=== PATIENT | female | born 1985 | race Caucasian/White ===

== ENCOUNTER → 2017-07-26 | Outpatient (REF) | payer BC ==
[2017-07-29 14:14] LABS: HPV HYBRID CAPTURE II Negative (Negative)
== END ==
LOC: M LAB REF 18:08
DX: Z12.4 Encounter for screening for malignant neoplasm of cervix (principal)
CPT/HCPCS: G0123

== ENCOUNTER → 2017-10-14 | Outpatient (CLI) | payer BC ==
[2017-10-14 09:55] LABS: BASO # 0.1 10^3/uL (0.0-0.2); BASO % 0.6 % (0.0-1.0); EOS # 0.1 10^3/uL (0.0-0.50); EOS % 1.5 % (0.0-3.0); HEMATOCRIT 39.5 % (36.0-47.0); HEMOGLOBIN 13.5 g/dl (12.0-15.5); IMMATURE GRANULOCYTE % 0.4 % (0-3.0); LYMPH # 1.6 10^3/uL (1.5-4.5); LYMPH % 18.9 % (24.0-44.0); MEAN CORPUSCULAR HEMOGLOBIN 29.7 pg (27.0-33.0); MEAN CORPUSCULAR HGB CONC 34.2 g/dl (32.0-36.5); MEAN CORPUSCULAR VOLUME 86.8 fl (80.0-96.0); MONO # 0.6 10^3/uL (0.0-0.8); NEUTROPHILS # 5.9 10^3/uL (1.8-7.7); NEUTROPHILS % 71.6 % (36.0-66.0); PLATELET COUNT, AUTOMATED 205 10^3/uL (150-450); RED BLOOD COUNT 4.55 10^6/uL (4.00-5.40); RED CELL DISTRIBUTION WIDTH 13.5 % (11.5-14.5); WHITE BLOOD COUNT 8.2 10^3/uL (4.0-10.0)
[2017-10-14 12:16] LABS: CHLAMYDIA DNA AMPLIFICATION NEGATIVE (NEGATIVE); GC DNA AMPLIFICATION NEGATIVE (NEGATIVE)
[2017-10-15 11:53] LABS: RUBELLA IgG QUALITATIVE IMMUNE (IMMUNE)
[2017-10-15 12:03] LABS: HBsAg Prenatal NEGATIVE (NEGATIVE)
[2017-10-15 12:25] LABS: HIV 1&2 SCREEN CENTAUR NEGATIVE (NEGATIVE)
[2017-10-15 12:25] LABS: HEPATITIS C VIRUS ABY INDEX < 0.0 INDEX (<0.8)
== END ==
LOC: M LAB 09:17
DX: Z34.81 Encounter for supervision of other normal pregnancy, first trimester (principal)

== ENCOUNTER → 2017-11-22 | Outpatient (CLI) | payer BC | LOC: M RAD 16:03 | DX: Z34.82 Encounter for supervision of other normal pregnancy, second trimester (principal); Z36.89 Encounter for other specified antenatal screening; Z3A.18 18 weeks gestation of pregnancy | CPT/HCPCS: 76811 ==

== ENCOUNTER → 2018-02-04 | Outpatient (CLI) | payer BC ==
[2018-02-04 13:51] LABS: BASO % 0.4 % (0.0-1.0); EOS # 0.2 10^3/uL (0.0-0.50); EOS % 1.6 % (0.0-3.0); HEMATOCRIT 36.5 % (36.0-47.0); HEMOGLOBIN 11.7 g/dl (12.0-15.5); IMMATURE GRANULOCYTE % 0.7 % (0-3.0); LYMPH # 1.4 10^3/uL (1.5-4.5); LYMPH % 14.6 % (24.0-44.0); MEAN CORPUSCULAR HEMOGLOBIN 29.8 pg (27.0-33.0); MEAN CORPUSCULAR HGB CONC 32.1 g/dl (32.0-36.5); MEAN CORPUSCULAR VOLUME 93.1 fl (80.0-96.0); MONO # 0.6 10^3/uL (0.0-0.8); MONO % 6.7 % (0.0-5.0); NEUTROPHILS # 7.1 10^3/uL (1.8-7.7); PLATELET COUNT, AUTOMATED 199 10^3/uL (150-450); RED BLOOD COUNT 3.92 10^6/uL (4.00-5.40); RED CELL DISTRIBUTION WIDTH 13.8 % (11.5-14.5); WHITE BLOOD COUNT 9.3 10^3/uL (4.0-10.0)
[2018-02-04 14:17] LABS: GLUCOSE CHALLENGE TEST 1 HOUR 116 MG/DL (LESS THAN 140)
== END ==
LOC: M SMT 08:14
DX: Z34.82 Encounter for supervision of other normal pregnancy, second trimester (principal); Z36.89 Encounter for other specified antenatal screening
CPT/HCPCS: 82950

== ENCOUNTER → 2018-03-29 | Outpatient (REF) | payer BC | LOC: M LAB REF 13:15 | DX: Z36.89 Encounter for other specified antenatal screening (principal) | CPT/HCPCS: 87081 ==

== ENCOUNTER → 2018-03-30 | Outpatient (CLI) | payer BC | LOC: M RAD 14:46 | DX: O26.843 Uterine size-date discrepancy, third trimester (principal); Z3A.36 36 weeks gestation of pregnancy | CPT/HCPCS: 76816 ==

== ENCOUNTER 2018-04-28 07:37 | Inpatient (IN) | payer BC ==
[2018-04-28] MEDS ORDERED: OXYTOCIN 30 UNITS IN 0.9% NaCl 500ML IV BAG (J2590) As Ordered (07:54)
[2018-04-28 08:24] LABS: HEMATOCRIT 36.7 % (36.0-47.0); HEMOGLOBIN 11.9 g/dl (12.0-15.5); MEAN CORPUSCULAR HEMOGLOBIN 27.9 pg (27.0-33.0); MEAN CORPUSCULAR HGB CONC 32.4 g/dl (32.0-36.5); MEAN CORPUSCULAR VOLUME 85.9 fl (80.0-96.0); PLATELET COUNT, AUTOMATED 218 10^3/uL (150-450); RED BLOOD COUNT 4.27 10^6/uL (4.00-5.40); RED CELL DISTRIBUTION WIDTH 14.8 % (11.5-14.5); WHITE BLOOD COUNT 13.7 10^3/uL (4.0-10.0)
[2018-04-28] MEDS: OXYTOCIN DRIP 30 UNITS in APPROPRIATE DILUENT 1 EA IV (08:35)
[2018-04-28 08:58] LABS: CORD GAS HCO3 V 23.3 MEQ/L; CORD GAS O2 SAT V 85.7 %; CORD GAS PCO2 V 46.3 mmHg; CORD GAS PO2 V 41.4 mmHg; CORD GAS SBC V 21.7 MEQ/L; CORD GAS TCO2 V 24.7 MEQ/L
[2018-04-28 08:59] LABS: CORD GAS ABE A -4.7; CORD GAS HCO3 A 24.3 MEQ/L; CORD GAS O2 SAT A 64.6 %; CORD GAS PCO2 A 61.2 mmHg; CORD GAS PH A 7.216 UNITS; CORD GAS PO2 A 30.6 mmHg; CORD GAS SBC A 19.8 MEQ/L; CORD GAS TCO2 A 26.1 MEQ/L
[2018-04-28] MEDS: LIDOCAINE 1% MDV 20ML VIAL INFIL (08:59)
[2018-04-28] MEDS: PRENATAL VITAMINS CHEWABLE TABLET PO (09:00)
[2018-04-28] MEDS ORDERED: MEASLES,MUMPS,RUBELLA VACCINE INJ (MMR-II) (90707) SC (09:15)
[2018-04-28] MEDS ORDERED: DIBUCAINE 1% OINTMENT 30GM TOP (09:15)
[2018-04-28] MEDS ORDERED: DOCUSATE SODIUM 100 MG CAP PO (09:15)
[2018-04-28] MEDS ORDERED: RHOGAM 300 MCG (1500 IU) INJ (J2790) IM (09:15)
[2018-04-28] MEDS ORDERED: METHYLERGONOVINE MALEATE 0.2 MG TAB PO (09:15)
[2018-04-28] MEDS ORDERED: ACETAMINOPHEN 500 MG TAB PO (09:15)
[2018-04-28] MEDS ORDERED: IBUPROFEN 800 MG TAB PO (09:15)
[2018-04-29] MEDS: PRENATAL VITAMINS CHEWABLE TABLET PO (07:57)
== END 2018-04-29 15:25 | disposition home or self-care (01) | DRG 560 ==
LOC: M LDO 07:37 → M LDI 07:52 → M OBS 11:10
PROVIDERS: Advanced Practice Midwife
PROC: 10E0XZZ Delivery of Products of Conception, External Approach (ICD-10-PCS; principal; 2018-04-28)
DX: O48.0 Post-term pregnancy (principal); O66.0 Obstructed labor due to shoulder dystocia; Z37.0 Single live birth; Z3A.40 40 weeks gestation of pregnancy; O69.82X0 Labor and delivery complicated by other cord entanglement, without compression, not applicable or unspecified

== ENCOUNTER → 2018-09-12 | Outpatient (REF) | payer BC ==
[~2018-09-12] MED LIST: IBUP-1022 PO; IBUP80TA PO; MAPA500T2 PO; PRENTAB9 PO
[2018-09-15 14:14] LABS: HPV HYBRID CAPTURE II Negative (Negative)
== END ==
LOC: M LAB REF 18:53
PROVIDERS: ATTEND Advanced Practice Midwife
DX: Z12.4 Encounter for screening for malignant neoplasm of cervix (principal)
CPT/HCPCS: 87624; G0123

== ENCOUNTER → 2018-10-14 | Outpatient (CLI) | payer BC | LOC: M SMT 09:28 | PROVIDERS: ATTEND Obstetrics & Gynecology | DX: N91.2 Amenorrhea, unspecified (principal) ==

== ENCOUNTER → 2018-10-31 | Outpatient (CLI) | payer BC ==
--- NOTE | 2018-10-31 07:28 | REP ---
Clinical: Dating and viability. Technique: Transabdominal first trimester obstetrical ultrasound with color Doppler evaluation. Findings: Single live early intrauterine identified. [place] rump length of 5.4 cm corresponds to 12 weeks 0 days gestational age with estimated date of delivery 05/15/2019. heart rate equals 165 beats per minute. No gross abnormalities are identified. Maternal ovaries are normal in appearance. Right ovary measures 2.7 x 1.4 x 2.5 cm; RI 0.72. Left ovary measures 3.2 x 2.9 x 2.3 cm; RI 0.64. Impression: Single live early intrauterine measuring at 12 weeks 0 days gestational age. Complete anatomical assessment should be performed at 19-20 weeks. Electronically Signed by Anselmo Matias MD 10/31/2018 07:20 A
== END ==
LOC: M RAD 06:30
PROVIDERS: ATTEND Nurse Practitioner Family
DX: Z32.01 Encounter for pregnancy test, result positive (principal); Z3A.12 12 weeks gestation of pregnancy

== ENCOUNTER → 2019-02-20 | Outpatient (CLI) | payer BC ==
[2019-02-20 18:21] LABS: BASO # 0.1 10^3/uL (0.0-0.2); BASO % 0.6 % (0.0-1.0); EOS # 0.1 10^3/uL (0.0-0.5); HEMATOCRIT 36.8 % (36.0-47.0); HEMOGLOBIN 12.1 g/dl (12.0-15.5); LYMPH # 1.7 10^3/uL (1.5-5.0); LYMPH % 16.6 % (24.0-44.0); MEAN CORPUSCULAR HEMOGLOBIN 30.1 pg (27.0-33.0); MEAN CORPUSCULAR HGB CONC 32.9 g/dl (32.0-36.5); MEAN CORPUSCULAR VOLUME 91.5 fl (80.0-96.0); MONO # 0.7 10^3/uL (0.0-0.8); MONO % 7.2 % (0.0-5.0); NEUTROPHILS # 7.6 10^3/uL (1.5-8.5); NEUTROPHILS % 73.4 % (36.0-66.0); PLATELET COUNT, AUTOMATED 180 10^3/uL (150-450); RED BLOOD COUNT 4.02 10^6/uL (4.00-5.40); WHITE BLOOD COUNT 10.3 10^3/uL (4.0-10.0)
[2019-02-20 20:48] LABS: CHLAMYDIA DNA AMPLIFICATION NEGATIVE (NEGATIVE); GC DNA AMPLIFICATION NEGATIVE (NEGATIVE)
[2019-02-22 08:30] LABS: HIV 1&2 SCREEN CENTAUR NEGATIVE (NEGATIVE); RUBELLA IgG QUALITATIVE IMMUNE (IMMUNE)
[2019-02-22 10:01] LABS: HEPATITIS C VIRUS ABY INDEX 0.1 INDEX (<0.8)
== END ==
LOC: M SMT 13:06
PROVIDERS: ATTEND Advanced Practice Midwife
DX: Z34.80 Encounter for supervision of other normal pregnancy, unspecified trimester (principal); Z36.89 Encounter for other specified antenatal screening

== ENCOUNTER → 2019-04-11 | Outpatient (CLI) | payer BC | LOC: M WHC 08:33 | PROVIDERS: ATTEND Advanced Practice Midwife | DX: O26.849 Uterine size-date discrepancy, unspecified trimester (principal); Z53.9 Procedure and treatment not carried out, unspecified reason ==

== ENCOUNTER → 2019-04-18 | Outpatient (REF) | payer BC | LOC: M SFHCWAGY 17:01 | PROVIDERS: ATTEND Advanced Practice Midwife | DX: Z34.93 Encounter for supervision of normal pregnancy, unspecified, third trimester (principal) ==

== ENCOUNTER 2019-05-16 16:19 | Inpatient (IN) | payer BC ==
[2019-05-16] VITALS (8 sets, daily range): BP systolic 106–147; BP diastolic 60–81
[~2019-05-16] VITALS: Ht 154.9 cm; Wt 120.7 kg
[2019-05-16] MEDS ORDERED: OXYTOCIN 30 UNITS IN 0.9% NaCl 500ML IV BAG (J2590) As Ordered ONE (16:40)
[2019-05-16 17:08] LABS: HEMATOCRIT 42.7 % (36.0-47.0); HEMOGLOBIN 13.7 g/dl (12.0-15.5); MEAN CORPUSCULAR HEMOGLOBIN 27.8 pg (27.0-33.0); MEAN CORPUSCULAR HGB CONC 32.1 g/dl (32.0-36.5); MEAN CORPUSCULAR VOLUME 86.6 fl (80.0-96.0); PLATELET COUNT, AUTOMATED 194 10^3/uL (150-450); RED BLOOD COUNT 4.93 10^6/uL (4.00-5.40); WHITE BLOOD COUNT 17.6 10^3/uL (4.0-10.0)
[2019-05-16] MEDS ORDERED: OXYTOCIN DRIP 30 UNITS in IV 1 EA IV SCH (17:24)
[2019-05-16] MEDS ORDERED: ACETAMINOPHEN TAB 650MG DOSE (2X325MG) PO PRN (17:30)
[2019-05-16] MEDS ORDERED: DIBUCAINE 1% OINTMENT 30GM TOP PRN (17:30)
[2019-05-16] MEDS ORDERED: IBUPROFEN 600 MG TAB PO PRN (17:30)
[2019-05-16] MEDS ORDERED: DOCUSATE SODIUM 100 MG CAP PO PRN (17:30)
[2019-05-16] MEDS ORDERED: IBUPROFEN 800 MG TAB PO PRN (17:30)
[2019-05-16] MEDS ORDERED: METHYLERGONOVINE MALEATE 0.2 MG TAB PO PRN (17:30)
[2019-05-16] MEDS ORDERED: MEASLES,MUMPS,RUBELLA VACCINE INJ (MMR-II) (90707) SC SCH (17:30)
[2019-05-16] MEDS ORDERED: RHOGAM 300 MCG (1500 IU) INJ (J2790) IM SCH (17:30)
[2019-05-16] MEDS ORDERED: ACETAMINOPHEN 500 MG TAB PO PRN (17:30)
--- NOTE | 2019-05-16 17:37 | HPE ---
DATE OF ADMISSION: 05/16/2019 Giselle is a 33-year-old 3, para 2-0-0-2 at 40-1/7 weeks gestation, estimated date of confinement (EDC) of 05/15/2019 based on last period and confirmed by first trimester ultrasound. Presents to labor and delivery today with onset of uncomfortable contractions that started at 0900, and they are about 2-3 minutes apart and excruciatingly uncomfortable. She does report some mild bloody show. Denies leakage of fluid. The fetus has been active. care was initiated at [facility] in the first trimester. course has been uncomplicated. OBSTETRICAL HISTORY: April 2014, 38 weeks gestation, spontaneous vaginal delivery, 7-pound 6-ounce male. April 2018, 40-3/7 weeks, 9-pound 3-ounce male, spontaneous vaginal delivery complicated by shoulder dystocia. OBSTETRIC LABORATORIES: O positive, antibody screen negative. Pap normal. Rubella immune, VDRL nonreactive. Urine culture: No growth. Hepatitis B surface antigen negative. HIV negative. Hepatitis C antibody nonreactive. Gonorrhea and chlamydia negative. Gestational diabetic screening normal at 85. GBS negative. PAST MEDICAL HISTORY: 1. Abnormal Pap smear. 2. Childhood varicella. SURGERIES: [place] tooth extraction. FAMILY HISTORY: Hypertension, varicose veins, thyroid disease, muscular dystrophy. SOCIAL HISTORY: The patient is single; however, her partner is at bedside and supportive. She is a nonsmoker. She denies alcohol and drug use throughout her and denies a history of abuse, physical, sexual, or emotional. Denies history of sexually transmitted infections. ALLERGIES: No known drug allergies. Upon arrival, the patient was extremely uncomfortable. Vital signs were not taken at that time, as she reported the urge to push. heart rate was category 1. Contractions were difficult to trace. Sterile vaginal exam: Complete/complete, 0 station, cephalic presentation. Estimated weight 8-1/2 pound. ASSESSMENT: Uterine at 40-1/7 weeks. heart rate category 1, second stage labor. PLAN: Admit the patient to labor and delivery. Saline lock. Type and screen, rubella. Anticipate spontaneous vaginal delivery
--- NOTE | 2019-05-16 17:38 | DN ---
DATE: 05/16/2019 Giselle is a 33-year-old 3, para 3-0-0-3 now who was admitted to labor and delivery in active labor. She arrived to labor and delivery complete dilation at 1634 hours, assisted rupture of membranes for clear odorless fluid at 1640 hours. She pushed to a normal spontaneous vaginal delivery of a live male infant in occiput anterior (OA) position with restitution to left occiput transverse (LOT) position at 1644 hours. There was a nuchal cord times three reduced manually at the time of delivery. The shoulders delivered with gentle downward traction and the corpus immediately followed. The male was placed on the maternal abdomen crying and active. Mouth and nares were bulb suctioned. Cord was clamped times two once pulsations ceased and cut by the father of the baby under my direction. There was a spontaneous expulsion of an intact placenta by Wheat mechanism with three-vessel cord at 1656 hours. Uterine hemostasis achieved with IV Pitocin rapid infusion and uterine fundal massage. Estimated blood loss 350 mL. Perineum and vagina inspected and noted to be intact. male weighed 8 pounds 11 ounces, 3510 grams, scores 9 and 9. The mom is going to breastfeed her son, and the family are uncertain as to his name at this time. At the close of delivery, instrument counts and lap counts were correct and verified.
[2019-05-17 06:00] VITALS: BP 110/70
[2019-05-17] MEDS ORDERED: PRENATAL VITAMINS CHEWABLE TABLET PO SCH (09:00)
== END 2019-05-17 15:00 | disposition home or self-care (01) | DRG 560 ==
LOC: M LDO 16:19 → M LDI 16:39 → M OBS 22:27
PROVIDERS: ADMIT Advanced Practice Midwife; ATTEND Advanced Practice Midwife
PROC: 10E0XZZ Delivery of Products of Conception, External Approach (ICD-10-PCS; principal; 2019-05-16)
PROC: 10907ZC Drainage of Amniotic Fluid, Therapeutic from Products of Conception, Via Natural or Artificial Opening (ICD-10-PCS; 2019-05-16)
DX: O48.0 Post-term pregnancy (principal); Z3A.40 40 weeks gestation of pregnancy; O69.81X0 Labor and delivery complicated by cord around neck, without compression, not applicable or unspecified; Z37.0 Single live birth

== ENCOUNTER → 2020-01-03 | Outpatient (CLI) | payer BC ==
--- NOTE | 2020-01-29 11:33 | REP ---
RIGHT KNEE SERIES CLINICAL: Right knee pain without injury. TECHNIQUE: AP, lateral, bilateral oblique and sunrise views of the right knee. FINDINGS: The osseous structures and joint spaces are intact and essentially age appropriate. No significant degenerative changes are appreciated. No acute fracture or dislocation. No significant swelling or effusion. IMPRESSION: Age appropriate right knee radiographs. If the patient remains symptomatic, consider MRI for further investigation. JACOB
== END ==
LOC: M WUC 09:04
PROVIDERS: ATTEND Physician Assistant
DX: M25.561 Pain in right knee (principal)

== ENCOUNTER → 2020-08-20 | Outpatient (REF) | payer BC | LOC: M SFHCWAGY 09:43 | PROVIDERS: ATTEND Advanced Practice Midwife | DX: Z12.4 Encounter for screening for malignant neoplasm of cervix (principal) | CPT/HCPCS: 87624; G0123 ==

== ENCOUNTER → 2020-10-16 | Outpatient (REF) | payer BC ==
[2020-10-16 11:05] LABS: HEMATOCRIT 44.2 % (36.0-47.0); HEMOGLOBIN 14.2 g/dl (12.0-15.5); MEAN CORPUSCULAR HEMOGLOBIN 29.1 pg (27.0-33.0); MEAN CORPUSCULAR HGB CONC 32.1 g/dl (32.0-36.5); MEAN CORPUSCULAR VOLUME 90.6 fl (80.0-96.0); PLATELET COUNT, AUTOMATED 239 10^3/uL (150-450); RED BLOOD COUNT 4.88 10^6/uL (4.00-5.40); WHITE BLOOD COUNT 6.8 10^3/uL (4.0-10.0)
== END ==
LOC: M PLALAB 09:16
PROVIDERS: ATTEND Advanced Practice Midwife
DX: R53.83 Other fatigue (principal)

== ENCOUNTER 2020-11-27 07:18 | Emergency (ER) | payer BC ==
[~2020-11-27] VITALS: Ht 157.5 cm; Wt 113.8 kg
[2020-11-27] MEDS ORDERED: CEPH500C (07:29)
[2020-11-27] MEDS ORDERED: SETL1TAB (07:29)
[2020-11-27] MEDS ORDERED: LIDOCAINE W/EPINEPHRINE 1% 20ML VIAL SC ONE (08:00)
[2020-11-27 08:50] VITALS: BP 131/86
[2020-11-29] MEDS ORDERED: DOXY1CAP62 PO (13:04)
== END 2020-11-27 09:06 | disposition home or self-care (01) ==
LOC: M ED 07:18 → EEVIPCON 07:18 → M ED 09:06
DX: L02.01 Cutaneous abscess of face (principal); L03.211 Cellulitis of face; Z79.3 Long term (current) use of hormonal contraceptives

== ENCOUNTER → 2022-02-07 | Outpatient (CLI) | payer BC ==
[~2022-02-07] MED LIST changes: +CEPH500C; +DOXY-443 PO; +SETL1TAB
[2022-02-07 12:36] LABS: BASO % 0.6 % (0.0-1.0); EOS # 0.1 10^3/uL (0.0-0.5); EOS % 1.7 % (0.0-3.0); HEMATOCRIT 43.5 % (36.0-47.0); HEMOGLOBIN 14.5 g/dl (12.0-15.5); LYMPH # 1.3 10^3/uL (1.5-5.0); LYMPH % 24.1 % (24.0-44.0); MEAN CORPUSCULAR HEMOGLOBIN 30.3 pg (27.0-33.0); MEAN CORPUSCULAR HGB CONC 33.3 g/dl (32.0-36.5); MEAN CORPUSCULAR VOLUME 90.8 fl (80.0-96.0); MONO # 0.5 10^3/uL (0.0-0.8); MONO % 10.1 % (2.0-8.0); NEUTROPHILS # 3.4 10^3/uL (1.5-8.5); NEUTROPHILS % 62.9 % (36.0-66.0); PLATELET COUNT, AUTOMATED 208 10^3/uL (150-450); RED BLOOD COUNT 4.79 10^6/uL (4.00-5.40); WHITE BLOOD COUNT 5.4 10^3/uL (4.0-10.0)
[2022-02-07 13:22] LABS: ALBUMIN 3.3 GM/DL (3.2-5.2); ALT/SGPT 22 U/L (12-78); BILIRUBIN,TOTAL 0.6 MG/DL (0.2-1.0); BLOOD UREA NITROGEN 14 MG/DL (7-18); CALCIUM LEVEL 8.9 MG/DL (8.5-10.1); CARBON DIOXIDE LEVEL 28 MEQ/L (21-32); CHLORIDE LEVEL 106 MEQ/L (98-107); CHOLESTEROL LEVEL 165 MG/DL (<200); CREATININE FOR GFR 0.78 MG/DL (0.55-1.30); FREE T4 1.16 NG/DL (0.76-1.46); GLOMERULAR FILTRATION RATE > 60.0 (>60); GLUCOSE, FASTING 85 MG/DL (70-100); HDL CHOLESTEROL 47 MG/DL (>40); LDL CHOLESTEROL 106 MG/DL (<100); NON-HDL-C 118 MG/DL; POTASSIUM SERUM 4.4 MEQ/L (3.5-5.1); SODIUM LEVEL 138 MEQ/L (136-145); THYROID STIMULATING HORMONE 0.483 uIU/ML (0.358-3.740); TRIGLYCERIDES LEVEL 59 MG/DL (<150)
[2022-02-07 13:33] LABS: HEMOGLOBIN A1c 5.2 %
[2022-02-09 09:53] LABS: TOTAL 25(OH) VITAMIN D 27.4 NG/ML (30.0-100.0)
== END ==
LOC: M LAB 11:43
PROVIDERS: ATTEND Physician Assistant
DX: Z13.220 Encounter for screening for lipoid disorders (principal); Z13.29 Encounter for screening for other suspected endocrine disorder

== ENCOUNTER → 2022-04-24 | Outpatient (REF) | payer BC, OTHER | LOC: M SFHCWAGY 10:06 | PROVIDERS: ATTEND Advanced Practice Midwife | DX: Z12.4 Encounter for screening for malignant neoplasm of cervix (principal) | CPT/HCPCS: 87624; G0123 ==

== ENCOUNTER → 2023-08-24 | Outpatient (REF) | payer BC ==
[2023-08-24 18:41] LABS: FREE T4 1.2 NG/DL (0.89-1.76)
[2023-08-24 18:42] LABS: THYROID STIMULATING HORMONE 0.42 uIU/ML (0.55-4.78)
== END ==
LOC: M LABDRAWP 17:53
PROVIDERS: ATTEND Advanced Practice Midwife
DX: R63.5 Abnormal weight gain (principal); Z12.4 Encounter for screening for malignant neoplasm of cervix
CPT/HCPCS: 84439; 84443; 87624; G0123

== ENCOUNTER → 2023-10-27 | Outpatient (CLI) | payer BC ==
[~2023-10-27] MED LIST changes: +DOXY-323 PO; -DOXY-443 PO
[2023-10-27 14:37] LABS: BASO # 0.1 10^3/uL (0.0-0.2); BASO % 0.7 % (0.0-1.0); EOS # 0.1 10^3/uL (0.0-0.5); HEMATOCRIT 43.8 % (36.0-47.0); HEMOGLOBIN 14.3 g/dl (12.0-15.5); LYMPH # 1.6 10^3/uL (1.5-5.0); LYMPH % 23.2 % (24.0-44.0); MEAN CORPUSCULAR HEMOGLOBIN 30.6 pg (27.0-33.0); MEAN CORPUSCULAR HGB CONC 32.6 g/dl (32.0-36.5); MEAN CORPUSCULAR VOLUME 93.6 fl (80.0-96.0); MONO # 0.5 10^3/uL (0.0-0.8); MONO % 7.4 % (2.0-8.0); NEUTROPHILS # 4.6 10^3/uL (1.5-8.5); NEUTROPHILS % 67.6 % (36.0-66.0); PLATELET COUNT, AUTOMATED 170 10^3/uL (150-450); RED BLOOD COUNT 4.68 10^6/uL (4.00-5.40); WHITE BLOOD COUNT 6.9 10^3/uL (4.0-10.0)
[2023-10-27 14:57] LABS: ALBUMIN 3.3 G/DL (3.2-5.2); ALKALINE PHOSPHATASE 58 U/L (46-116); ALT/SGPT 26 U/L (7.0-40); AST/SGOT 15 U/L (<34); BILIRUBIN,TOTAL 0.9 MG/DL (0.3-1.2); BLOOD UREA NITROGEN 15 MG/DL (9-23); CALCIUM LEVEL 8.7 MG/DL (8.5-10.1); CARBON DIOXIDE LEVEL 26 MMOL/L (20-31); CHLORIDE LEVEL 105 MMOL/L (98-107); CHOLESTEROL LEVEL 152 MG/DL (<200); CHOLESTEROL RISK RATIO 3.58 (<5); CREATININE FOR GFR 0.71 MG/DL (0.55-1.30); GLOMERULAR FILTRATION RATE > 60.0 (>60); GLUCOSE, FASTING 73 MG/DL (60-100); HDL CHOLESTEROL 42.4 MG/DL (>40); LDL CHOLESTEROL 100.6 MG/DL (<100); NON-HDL-C 109.6 MG/DL; POTASSIUM SERUM 4.8 MMOL/L (3.5-5.1); SODIUM LEVEL 138 MMOL/L (136-145); TOTAL PROTEIN 6.5 G/DL (5.7-8.2); TRIGLYCERIDES LEVEL 45 MG/DL (<150)
[2023-10-27 14:58] LABS: FREE T4 1.27 NG/DL (0.89-1.76); THYROID PEROXIDASE ANTIBODY 529 U/ML (<60.0); THYROID STIMULATING HORMONE 0.556 uIU/ML (0.55-4.78)
[2023-10-27 14:59] LABS: TOTAL 25(OH) VITAMIN D 41.5 NG/ML (20.0-100.0)
[2023-10-28 14:43] LABS: THRYOGLOBULIN ANTIBODIES (ATA) < 1 IU/mL (< or = 1); THYROGLOBULIN QUANTITATIVE 8.4 ng/mL (2.8-40.9)
== END ==
LOC: M PLALAB 10:36
PROVIDERS: ATTEND Physician Assistant
DX: E55.9 Vitamin D deficiency, unspecified (principal); R94.6 Abnormal results of thyroid function studies; Z13.220 Encounter for screening for lipoid disorders

== ENCOUNTER → 2024-12-01 | Outpatient (CLI) | payer BC ==
[~2024-12-01] MED LIST changes: -DOXY-323 PO; +DOXY-441 PO
[2024-12-01 13:27] LABS: BASO # 0.1 10^3/uL (0.0-0.2); BASO % 1.3 % (0.0-1.0); EOS # 0.1 10^3/uL (0.0-0.5); EOS % 1.5 % (0.0-3.0); LYMPH # 1.8 10^3/uL (1.5-5.0); LYMPH % 24.6 % (24.0-44.0); MONO # 0.5 10^3/uL (0.0-0.8); MONO % 7.6 % (2.0-8.0); NEUTROPHILS # 4.6 10^3/uL (1.5-8.5); NEUTROPHILS % 64.9 % (36.0-66.0); PLATELET COUNT, AUTOMATED 247 10^3/uL (150-450)
[2024-12-01 13:55] LABS: IRON (FE) 51 UG/DL (50-170); PERCENT SATURATION 19.1 % (13.2-45.0)
[2024-12-01 13:56] LABS: ALT/SGPT 20 U/L (7.0-40); AST/SGOT 19 U/L (<34); CALCIUM LEVEL 9.0 MG/DL (8.5-10.1); CARBON DIOXIDE LEVEL 28 MMOL/L (20-31); CHLORIDE LEVEL 104 MMOL/L (98-107); CREATININE FOR GFR 0.86 MG/DL (0.55-1.30); GLOMERULAR FILTRATION RATE 88.1 (>60); POTASSIUM SERUM 4.8 MMOL/L (3.5-5.1); SODIUM LEVEL 143 MMOL/L (136-145)
[2024-12-01 13:57] LABS: FREE T4 1.32 NG/DL (0.89-1.76); TOTAL 25(OH) VITAMIN D 37.1 NG/ML (20.0-100.0); VITAMIN B12 LEVEL 688 PG/ML (211-911)
[2024-12-01 13:58] LABS: RHEUMATOID FACTOR QUANT < 3.5 IU/ML (<14)
[2024-12-05 19:22] LABS: LYME TOTAL ANTIBODY CIA <= 0.90 Index (<=0.90)
== END ==
LOC: M PLALAB 09:30
PROVIDERS: ATTEND Physician Assistant
DX: M25.569 Pain in unspecified knee (principal); E55.9 Vitamin D deficiency, unspecified; Z13.0 Encounter for screening for diseases of the blood and blood-forming organs and certain disorders involving the immune mechanism; Z13.29 Encounter for screening for other suspected endocrine disorder

== ENCOUNTER → 2025-03-19 | Outpatient (CLI) | payer BC ==
[~2025-03-19] MED LIST changes: -IBUP-1022 PO; +IBUP600T42 PO
[2025-03-19 16:22] LABS: PLATELET COUNT, AUTOMATED 235 10^3/uL (150-450)
[2025-03-19 16:31] LABS: HCG, SERUM QUALITATIVE NEGATIVE (NEGATIVE)
[2025-03-19 17:01] LABS: ALT/SGPT 26 U/L (7.0-40); AST/SGOT 20 U/L (<34); TRIGLYCERIDES LEVEL 33 MG/DL (<150)
== END ==
LOC: M PLALAB 12:16
PROVIDERS: ATTEND Physician Assistant
DX: L70.0 Acne vulgaris (principal)

== ENCOUNTER → 2025-04-03 | Outpatient (REF) | payer BC ==
[2025-04-06 17:27] LABS: HPV APTIMA Not Detected (Not Detected)
== END ==
LOC: M SFHCWAGY 10:11
PROVIDERS: ATTEND Advanced Practice Midwife
DX: Z01.419 Encounter for gynecological examination (general) (routine) without abnormal findings (principal); Z77.9 Other contact with and (suspected) exposures hazardous to health
CPT/HCPCS: 87624; G0123